=== PATIENT | female | born 1995 | race African-American/Black ===

== ENCOUNTER 2017-11-27 11:39 | Emergency (ER) | payer SELFPAY ==
[~2017-11-27] VITALS: Ht 160 cm; Wt 88.5 kg
[2017-11-27 11:42] VITALS: BP 139/68; PULSE 65; RESP 22; TEMP 97.6; O2SAT 100
--- NOTE | 2017-11-27 12:40 | RADRPT ---
EXAM DATE/TIME: 11/27/2017 11:55 [place] COMPARISON: No previous studies available for comparison. INDICATIONS : Right ankle and foot pain. [place]. MEDICAL HISTORY : None. SURGICAL HISTORY : None. ENCOUNTER: Initial ACUITY: 1 day PAIN SCORE: 10/10 LOCATION: Right ankle. FINDINGS: Three view exam was performed of the right ankle. The bony structures are in normal alignment. No e vidence of fracture, dislocation, or soft tissue swelling. The ankle mortise is intact. No radiopaq ue foreign bodies are seen. Bony mineralization is normal. CONCLUSION: No acute disease. Masha Verma MD on November 27, 2017 at 12:30 Board Certified Radiologist. This report was verified electronically.
[2017-11-27] MEDS ORDERED: IBUP1TAB7 PO (13:22)
--- NOTE | 2017-11-27 13:22 | PD ---
HPI . Foot injury Chief Complaint: Injury Time Seen by Provider: 12:44 Travel History International Travel<30 days: No Contact w/Intl Traveler<30days: No Traveled to known affect area: No History of Present Illness HPI Patient states she [place] the [place] her presentation and stepped in a hole. She comes in complaining with dorsal ankle pain since that time she describes as constant, aching and rated 10/10. PFSH Past Medical History Medical History: Denies Significant Hx Diminished Hearing: No Tetanus Vaccination: < 5 Years Influenza Vaccination: No ?: Not LMP: 11/01/2017 Past Surgical History Surgical History: No Previous Surgery Social History Alcohol Use: No Tobacco Use: No Substance Use: No Allergies-Medications (Allergen,Severity, Reaction): Coded Allergies: No Known Allergies (Unverified , 11/27/17) Reported Meds & Prescriptions Reported Meds & Active Scripts Active No Active Prescriptions or Reported Medications Review of Systems Except as stated in HPI: all other systems reviewed are Neg Physical Exam Narrative GENERAL: Awake and alert and in no acute distress. SKIN: Warm and dry. Intact. No bruising or abrasions. HEAD: Normocephalic/atraumatic. EYES: Pupils are equal. Extraocular movements are intact. NECK: Normal range of motion. RESPIRATORY: Nonlabored respirations. MUSCULOSKELETAL: Right foot has no obvious deformity, swelling, bruising or abrasion. The malleolar are nontender. Structures are nontender. The ankle is stable. She is tender on the dorsal aspect of the right ankle. Normal DP pulse. NEUROLOGICAL: Nonfocal. PSYCHIATRIC: Appropriate mood and affect. Data Data Last Documented VS Vital Signs Date Time Temp Pulse Resp B/P (MAP) Pulse Ox O2 Delivery O2 Flow Rate FiO2 11/27/17 11:42 97.6 65 22 139/68 (91) 100 Orders Orders Ankle, Complete ([id number]) (11/27/17 ) MDM Medical Decision Making Medical Screen Exam Complete: Yes Emergency Medical Condition: Yes Differential Diagnosis Differential diagnosis of extremity trauma includes but is not limited to fracture, sprain or strain, dislocation, contusion Narrative Course This patient presents with an injury to her right foot. Her exam is unremarkable. Last Impressions Ankle X-Ray 11/27/17 0000 Signed Impressions: Service Date/Time: Monday, November 27, 2017 11:55 - CONCLUSION: No acute disease. Masha Verma MD Ankle be wrapped and she will be given crutches. She'll be given a prescription for ibuprofen. Diagnosis Primary Impression: Ankle sprain Qualified Codes: S93.401A - Sprain of unspecified ligament of right ankle, initial encounter Patient Instructions: Ankle Sprain (DC), General Instructions Additional Instructions: Ice and elevate her ankle as much as possible to control pain and swelling. You can expect for this to get worse before it starts getting better. The typical course is that he gets worse over 2 or 3 days and then starts to improve. It may take 6-8 weeks for it to completely resolve. You may take an [id number]-vbq-numblow pain medication as needed. Med/Other Pt SpecificInfo: Prescription(s) given Scripts Ibuprofen (Ibuprofen) 800 Mg Tab 800 MG PO Q8H Y for Pain/Inflammation, #60 TAB 0 Refills Prov: aKsey Bridges MD 11/27/17 Disposition: 01 DISCHARGE HOME Condition: Stable Kasey Bridges MD Nov 27, 2017 13:22
[2017-11-27] MEDS ORDERED: IBUPROFEN 800 MG TAB PO ONE (13:45)
== END 2017-11-27 13:58 | disposition home or self-care (01) ==
LOC: NEPD 11:39
DX: S93.401A Sprain of unspecified ligament of right ankle, initial encounter (principal); W17.2XXA Fall into hole, initial encounter; Y93.02 Activity, running; Y92.832 Beach as the place of occurrence of the external cause
CPT/HCPCS: 73610; 99283; E0113